=== PATIENT | male | born 1995 | race Hispanic/Latino ===

== ENCOUNTER 2017-09-04 18:44 | Emergency (ER) | payer SELFPAY ==
--- NOTE | 2017-09-04 19:15 | EDPHYS ---
Physician Documentation [facility] Name: Edward Armando Age: 21 yrs Sex: Male : 1995 Arrival Date: 09/04/2017 Time: 18:47 Bed 15 Private MD: ED Physician Jose Rafael Herrera HPI: 09/04 19:06 This 21 yrs old Male presents to ER via Ambulatory with complaints of Insect pkl Bite, Rash. 19:10 The patient was bitten on the left calf. Onset: The symptoms/episode began/occurred pkl today. Associated signs and symptoms: Pertinent positives: tenderness, itching. Historical: - Allergies: 18:50 No Known Allergies; hj - Home Meds: 18:50 None [Active]; hj - PMHx: 18:50 UTI; hj - PSHx: 18:50 None; hj - Immunization history:: Last tetanus immunization: unknown, Pneumococcal vaccine status is unknown, Flu vaccine status is unknown. - Social history:: Smoking status: unknown. ROS: 19:10 Eyes: Negative for injury, pain, redness, and discharge, ENT: Negative for injury, pkl pain, and discharge, Neck: Negative for injury, pain, and swelling, Cardiovascular: Negative for chest pain, palpitations, and edema, Respiratory: Negative for shortness of breath, cough, wheezing, and pleuritic chest pain, Abdomen/GI: Negative for abdominal pain, nausea, vomiting, diarrhea, and constipation, Back: Negative for injury and pain, : Negative for injury, bleeding, discharge, and swelling. 19:10 MS/extremity: Positive for bite, of the left calf. 19:10 Neuro: Negative for altered mental status. Exam: 19:10 Head/Face: Normocephalic, atraumatic. Eyes: Pupils equal round and reactive to light, pkl extra-ocular motions intact. Lids and lashes normal. Conjunctiva and sclera are non-icteric and not injected. Cornea within normal limits. Periorbital areas with no swelling, redness, or edema. ENT: Nares patent. No nasal discharge, no septal abnormalities noted. Tympanic membranes are normal and external auditory canals are clear. Oropharynx with no redness, swelling, or masses, exudates, or evidence of obstruction, uvula midline. Mucous membranes moist. Neck: Trachea midline, no thyromegaly or masses palpated, and no cervical lymphadenopathy. Supple, full range of motion without nuchal rigidity, or vertebral point tenderness. No Meningismus. Chest/axilla: Normal chest wall appearance and motion. Nontender with no deformity. No lesions are appreciated. Cardiovascular: Regular rate and rhythm with a normal S1 and S2. No gallops, murmurs, or rubs. Normal PMI, no JVD. No pulse deficits. Respiratory: Lungs have equal breath sounds bilaterally, clear to auscultation and percussion. No rales, rhonchi or wheezes noted. No increased work of breathing, no retractions or nasal flaring. Abdomen/GI: Soft, non-tender, with normal bowel sounds. No distension or tympany. No guarding or rebound. No evidence of tenderness throughout. Back: No spinal tenderness. No costovertebral tenderness. Full range of motion. Neuro: Awake and alert, GCS 15, oriented to person, place, time, and situation. Cranial nerves II-XII grossly intact. Motor strength 5/5 in all extremities. Sensory grossly intact. Cerebellar exam normal. Normal gait. 19:10 Musculoskeletal/extremity: Extremities: grossly normal except: noted in the left calf: bite, No definite abscess noted at this time. Vital Signs: 18:50 BP 126 / 65; Pulse 102; Resp 18; Temp 99.6(TE); Pulse Ox 97% on R/A; Weight 111.58 kg; hj Height 5 ft. 9 in. (175.26 cm); 18:50 Body Mass Index 36.33 (111.58 kg, 175.26 cm) MDM: 19:05 Patient medically screened. pkl 19:10 Data reviewed: vital signs, nurses notes. pkl Administered Medications: No medications were administered Disposition: 09/04/17 19:14 Discharged to Home. Impression: Insect bite left calf. - Condition is Stable. - Prescriptions for Keflex 500 mg Oral Capsule - take 1 capsule by ORAL route every 6 hours for 7 days; 28 capsule. - Medication Reconciliation Form, Thank You Letter, Antibiotic Education, Prescription Opioid Use form. - Follow up: Private Physician; When: 2 - 3 days; Reason: Re-evaluation by your physician. - Problem is new. - Symptoms are unchanged. Signatures: Jose Rafael Herrera MD MD pkCastillo Schaefer RN RN Ana Golden RN RN rk2 Corrections: (The following items were deleted from the chart) 19:36 19:14 09/04/2017 19:14 Discharged to Home. Impression: Insect bite left calf. Condition rk2 is Stable. Forms are Medication Reconciliation Form, Thank You Letter, Antibiotic Education, Prescription Opioid Use. Follow up: Private Physician; When: 2 - 3 days; Reason: Re-evaluation by your physician. Problem is new. Symptoms are unchanged. pkl
--- NOTE | 2017-09-04 19:15 | ER ---
Nurse's Notes [facility] Name: Edward Armando Age: 21 yrs Sex: Male : 1995 Arrival Date: 09/04/2017 Time: 18:47 Bed 15 Private MD: Diagnosis: Insect bite left calf Presentation: 09/04 18:48 Presenting complaint: Patient states: i started noticing like an insect bite on the hj back of my L leg today; it is itchy and numb around it;. Transition of care: patient was not received from another setting of care. Onset of symptoms was September 04, 2017. Initial Sepsis Screen: Does the patient meet any 2 criteria? No. Patient's initial sepsis screen is negative. Does the patient have a suspected source of infection? No. Patient's initial sepsis screen is negative. Care prior to arrival: None. 18:48 Method Of Arrival: Ambulatory 18:48 Acuity: FRIEDA 4 hj Triage Assessment: 18:50 Bite description: bite sustained to left calf by an unknown animal, animal information: vaccination(s) is not applicable. General: Appears in no apparent distress. uncomfortable, Behavior is calm, cooperative, appropriate for age. Pain: Denies pain. Historical: - Allergies: 18:50 No Known Allergies; - Home Meds: 18:50 None [Active]; - PMHx: 18:50 UTI; - PSHx: 18:50 None; hj - Immunization history:: Last tetanus immunization: unknown, Pneumococcal vaccine status is unknown, Flu vaccine status is unknown. - Social history:: Smoking status: unknown. Screenin:33 Abuse screen: Denies threats or abuse. Nutritional screening: No deficits noted. rk2 Tuberculosis screening: No symptoms or risk factors identified. Fall Risk None identified. Assessment: 18:50 Derm: Skin Skin is pink, warm \T\ dry. 19:34 General: Appears in no apparent distress. well developed, well nourished, Behavior is rk2 calm, cooperative. Neuro: Level of Consciousness is alert, obeys commands, Oriented to person, place, time, situation. Respiratory: Airway is patent Respiratory effort is even, unlabored, Respiratory pattern is regular, symmetrical. Vital Signs: 18:50 BP 126 / 65; Pulse 102; Resp 18; Temp 99.6(TE); Pulse Ox 97% on R/A; Weight 111.58 kg; hj Height 5 ft. 9 in. (175.26 cm); 18:50 Body Mass Index 36.33 (111.58 kg, 175.26 cm) ED Course: 18:47 Patient arrived in ED. as 18:49 Triage completed. hj 18:50 Arm band placed on right wrist. hj 19:05 Jose Rafael Herrera MD is Attending Physician. pkl 19:31 Ana Alfred, RN is Primary Nurse. rk2 19:33 Patient has correct armband on for positive identification. Bed in low position. Call rk2 light in reach. 19:35 No provider procedures requiring assistance completed. Patient did not have IV access rk2 during this emergency room visit. Administered Medications: No medications were administered Outcome: 19:14 Discharge ordered by . pkl 19:35 Discharged to home ambulatory. rk2 19:35 Condition: good 19:35 Discharge instructions given to patient, Prescriptions given X 1. 19:36 Patient left the ED. rk2 Signatures: Jose Rafael Herrera MD MD pkAlta Cardona Henry RN RN Ana Alfred RN RN rk2 Corrections: (The following items were deleted from the chart) 18:52 18:50 Pulse 102bpm; Resp 18bpm; Pulse Ox 97% RA; Temp 99.6F Temporal; 111.58 kg; Height hj 5 ft. 9 in.; BMI: 36.3; hj
== END 2017-09-04 19:36 | disposition home or self-care (01) ==
LOC: ER 18:44
DX: S80.862A Insect bite (nonvenomous), left lower leg, initial encounter (principal)
CPT/HCPCS: 99282

== ENCOUNTER 2017-09-05 20:34 | Emergency (ER) | payer SELFPAY ==
--- NOTE | 2017-09-05 21:22 | ER ---
Nurse's Notes [facility] Name: Edward Armando Age: 21 yrs Sex: Male : 1995 Arrival Date: 09/05/2017 Time: 20:35 Bed 12 Private MD: Diagnosis: Cutaneous abscess of left lower limb Presentation: 09/05 21:00 Presenting complaint: Patient states: left calf redness and raised abscess since ak1 yesterday. pt stated after taking a shower there was drainage. Transition of care: patient was not received from another setting of care. Onset of symptoms is unknown. Initial Sepsis Screen: Does the patient meet any 2 criteria? No. Patient's initial sepsis screen is negative. Does the patient have a suspected source of infection? No. Patient's initial sepsis screen is negative. Care prior to arrival: None. 21:00 Method Of Arrival: Ambulatory ak1 21:00 Acuity: FRIEDA 4 ak1 Triage Assessment: 21:01 Bite description: bite sustained to left leg by an unknown animal, animal information: ak1 vaccination(s) is not applicable. General: Appears in no apparent distress. Behavior is calm, cooperative. Pain: Complains of pain in left leg. EENT: No signs and/or symptoms were reported regarding the EENT system. Neuro: No deficits noted. Cardiovascular: No deficits noted. Respiratory: No deficits noted. GI: No signs and/or symptoms were reported involving the gastrointestinal system. : No signs and/or symptoms were reported regarding the genitourinary system. Derm: Abscess located on left calf is dime sized, is red. Musculoskeletal: No signs and/or symptoms reported regarding the musculoskeletal system. Historical: - Allergies: 21: No Known Allergies; ak1 - Home Meds: 21: None [Active]; ak1 - PMHx: 21: None; ak1 - PSHx: 21: None; ak1 - Immunization history:: Adult Immunizations up to date. - Social history:: Smoking status: Patient uses tobacco products, denies chronic smoking, but will smoke occasionally. Screenin:02 Abuse screen: Denies threats or abuse. Denies injuries from another. Nutritional ak1 screening: No deficits noted. Tuberculosis screening: No symptoms or risk factors identified. Fall Risk None identified. Assessment: 21:02 Derm: Skin has lesions on abscess to left calf Skin is red. ak1 21:30 Reassessment: Went to d/c pt but pt had already left without signing papers. aa1 Vital Signs: 20:59 BP 145 / 89; Pulse 82; Resp 18; Temp 98.1; Pulse Ox 96% on R/A; Weight 149.69 kg (R); ak1 Height 5 ft. 10 in. (177.80 cm) (R); Pain 10/10; 20:59 Body Mass Index 47.35 (149.69 kg, 177.80 cm) ak1 ED Course: 20:35 Patient arrived in ED. al2 20:59 Arm band placed on Patient placed in waiting room, Patient notified of wait time. ak1 21:01 Triage completed. ak1 21:02 Patient has correct armband on for positive identification. ak1 21:09 Florence Kelly [facility]C [facility] kb 21:09 Juan Jose Sullivan MD is Attending Physician. kb 21:30 No provider procedures requiring assistance completed. Patient did not have IV access aa1 during this emergency room visit. Administered Medications: No medications were administered Outcome: 21:22 Discharge ordered by MD. kb 21:30 Discharged to home ambulatory. aa1 21:30 Condition: good 21:31 Patient left the ED. aa1 Signatures: Florence Kelly FNP-C FNP-Mildred Lombardo RN RN aa1 Marisol Lares RN RN ak1 Antonieta Acosta al2
--- NOTE | 2017-09-05 21:23 | EDPHYS ---
Physician Documentation [facility] Name: Edward Armando Age: 21 yrs Sex: Male : 1995 Arrival Date: 09/05/2017 Time: 20:35 Bed 12 Private MD: ED Physician Juan Jose Sullivan HPI: 09/05 21:19 This 21 yrs old Male presents to ER via Ambulatory with complaints of Insect kb Bite, Leg Pain. 21:19 The patient presents with an abscess of the left calf. Description: draining, kb erythematous. Onset: The symptoms/episode began/occurred today. Possible cause(s): rash. Associated signs and symptoms: Pertinent positives: drainage, erythema, Pertinent negatives: foreign body sensation, fever, headache, nausea, shortness of breath, swelling, vomiting. Modifying factors: the symptoms are alleviated by nothing, the symptoms are aggravated by nothing. Severity of symptoms: At their worst the symptoms were very mild, in the emergency department the symptoms are unchanged. The patient has not experienced similar symptoms in the past. The patient has been recently seen at the [facility] Emergency Department, yesterday, for similar complaints. Pt states he was here yesterday for a rash, was given keflex. Today had a small "pimple" on the back of his leg with some redness. States it popped while he was in the shower so he came to have it looked at. Historical: - Allergies: 21:01 No Known Allergies; ak1 - Home Meds: 21:01 None [Active]; ak1 - PMHx: 21:01 None; ak1 - PSHx: 21:01 None; ak1 - Immunization history:: Adult Immunizations up to date. - Social history:: Smoking status: Patient uses tobacco products, denies chronic smoking, but will smoke occasionally. ROS: 21:15 Constitutional: Negative for fever, chills, and weight loss, Cardiovascular: Negative kb for chest pain, palpitations, and edema, Respiratory: Negative for shortness of breath, cough, wheezing, and pleuritic chest pain, Abdomen/GI: Negative for abdominal pain, nausea, vomiting, diarrhea, and constipation, Back: Negative for injury and pain, MS/Extremity: Negative for injury and deformity, Neuro: Negative for headache, weakness, numbness, tingling, and seizure. 21:15 Skin: Positive for abscess, erythema, rash, of the left calf. Exam: 21:15 Constitutional: This is a well developed, well nourished patient who is awake, alert, kb and in no acute distress. Head/Face: Normocephalic, atraumatic. Chest/axilla: Normal chest wall appearance and motion. Nontender with no deformity. No lesions are appreciated. Cardiovascular: Regular rate and rhythm with a normal S1 and S2. No gallops, murmurs, or rubs. Normal PMI, no JVD. No pulse deficits. Respiratory: Lungs have equal breath sounds bilaterally, clear to auscultation and percussion. No rales, rhonchi or wheezes noted. No increased work of breathing, no retractions or nasal flaring. Abdomen/GI: Soft, non-tender, with normal bowel sounds. No distension or tympany. No guarding or rebound. No evidence of tenderness throughout. MS/ Extremity: Pulses equal, no cyanosis. Neurovascular intact. Full, normal range of motion. Neuro: Awake and alert, GCS 15, oriented to person, place, time, and situation. Cranial nerves II-XII grossly intact. Motor strength 5/5 in all extremities. Sensory grossly intact. Cerebellar exam normal. Normal gait. 21:15 Skin: abscess, that is small, of the left calf, with drainage. Vital Signs: 20:59 BP 145 / 89; Pulse 82; Resp 18; Temp 98.1; Pulse Ox 96% on R/A; Weight 149.69 kg (R); ak1 Height 5 ft. 10 in. (177.80 cm) (R); Pain 10/10; 20:59 Body Mass Index 47.35 (149.69 kg, 177.80 cm) ak1 MDM: 21:10 Patient medically screened. kb 21:15 Data reviewed: vital signs, nurses notes. Data interpreted: Pulse oximetry: on room air kb is 96 %. Interpretation: normal. Counseling: I had a detailed discussion with the patient and/or guardian regarding: the historical points, exam findings, and any diagnostic results supporting the discharge/admit diagnosis, the need for outpatient follow up, a family practitioner, to return to the emergency department if symptoms worsen or persist or if there are any questions or concerns that arise at home. Administered Medications: No medications were administered Disposition: 09/06 00:56 Co-signature as Attending Physician, Juan Jose Sullivan MD. Chart complete. rn Disposition: 09/05/17 21:22 Discharged to Home. Impression: Cutaneous abscess of left lower limb. - Condition is Stable. - Discharge Instructions: Abscess, [id number]. - Medication Reconciliation Form, Thank You Letter, Antibiotic Education, Prescription Opioid Use form. - Follow up: Emergency Department; When: As needed; Reason: Worsening of condition. Follow up: Private Physician; When: 2 - 3 days; Reason: Recheck today's complaints, Continuance of care, Re-evaluation by your physician. - Notes: Continue previously prescribed antibiotics Signatures: Florence Kelly, ASSOCIATE ACCOUNT EXECUTIVE-C ASSOCIATE ACCOUNT EXECUTIVE-Ckb Mildred Guevara, RN RN aa1 Juan Jose Sullivan MD MD rn Marisol Lares, RN RN ak1 Corrections: (The following items were deleted from the chart) 09/05 21:31 21:22 09/05/2017 21:22 Discharged to Home. Impression: Cutaneous abscess of left lower aa1 limb. Condition is Stable. Forms are Medication Reconciliation Form, Thank You Letter, Antibiotic Education, Prescription Opioid Use. Follow up: Emergency Department; When: As needed; Reason: Worsening of condition. Follow up: Private Physician; When: 2 - 3 days; Reason: Recheck today's complaints, Continuance of care, Re-evaluation by your physician. kb
== END 2017-09-05 21:31 | disposition home or self-care (01) ==
LOC: ER 20:34
DX: L02.416 Cutaneous abscess of left lower limb (principal)
CPT/HCPCS: 99281

== ENCOUNTER 2018-06-27 16:45 | Emergency (ER) | payer SELFPAY ==
--- OUTSIDE RECORDS SUMMARY | 2018-06-27 16:48 | XMS REPORT ---
:1995 [facility] [address] [place] [address] [address] [place] [address] Care Team Providers Name Role Phone Unavailable Unavailable Unavailable Payers Payer Name Policy Type Policy Number Effective Date Expiration Date Problems This patient has no known problems. Allergies, Adverse Reactions, Alerts Allergy Allergy Status Severity Reaction(s) Onset Inactive Treating Comments Name Type Date Date Clinician No Known DA Active U 2018-01 Allergies -25 00:00:0 0 No Known DA Active U 2015-06 Allergies -21 00:00:0 0 Medications This patient has no known medications.
--- NOTE | 2018-06-27 17:46 | ER ---
Nurse's Notes [facility] Name: Edward Armando Age: 22 yrs Sex: Male : 1995 Arrival Date: 06/27/2018 Time: 16:47 Bed 26 Private MD: Diagnosis: Vomiting Presentation: 06/27 16:51 Presenting complaint: Patient states: Vomiting x1 at work today, reports because it sg happened at work they sent him to the ER for evaluation, pt states that he feels much better after vomiting and has not vomited since then, denies N/D/Fever at this time, reports that he felt warm at work before vomiting and then was a little dizzy but those symptoms are now gone, pt states he has had nasal drainage and sore throat for one day as well. Transition of care: patient was not received from another setting of care. Onset of symptoms was June 27, 2018. Risk Assessment: Do you want to hurt yourself or someone else? Patient reports no desire to harm self or others. Initial Sepsis Screen: Does the patient meet any 2 criteria? No. Patient's initial sepsis screen is negative. Does the patient have a suspected source of infection? No. Patient's initial sepsis screen is negative. Care prior to arrival: None. 16:51 Method Of Arrival: Ambulatory sg 16:51 Acuity: FRIEDA 4 sg Triage Assessment: 18:19 General: Appears in no apparent distress. comfortable, Behavior is calm, cooperative. rv 18:20 GI: Reports vomiting. rv 18:20 Pain: Denies pain. rv Historical: - Allergies: 16:50 No Known Allergies; sg - Home Meds: 16:50 None [Active]; sg - PMHx: 16:50 None; sg - PSHx: 16:50 None; sg - Immunization history:: Adult Immunizations not up to date. - Social history:: Smoking status: Patient uses tobacco products, denies chronic smoking, but will smoke occasionally. - Ebola Screening: : Patient negative for fever greater than or equal to 101.5 degrees Fahrenheit, and additional compatible Ebola Virus Disease symptoms Patient denies exposure to infectious person Patient denies travel to an Ebola-affected area in the 21 days before illness onset No symptoms or risks identified at this time. Screenin:19 Abuse screen: Denies threats or abuse. Denies injuries from another. Nutritional rv screening: No deficits noted. Tuberculosis screening: No symptoms or risk factors identified. Fall Risk None identified. Assessment: 18:19 Reassessment: agree with triage assessment. rv 18:20 GI: Abdomen is round. rv Vital Signs: 16:49 Pulse 75; Resp 18; Temp 98.6; Pulse Ox 100% ; Weight 136.08 kg (R); Pain 0/10; sg 16:51 BP 136 / 77; sg ED Course: 16:47 Patient arrived in ED. as 16:49 Arm band placed on. sg 16:53 Triage completed. sg 17:10 Claudia Shipman FNP-C is PHCP. snw 17:10 Kelechi Meza MD is Attending Physician. snw 18:19 Patient has correct armband on for positive identification. Bed in low position. Call rv light in reach. Pulse ox on. NIBP on. 18:19 No provider procedures requiring assistance completed. Patient did not have IV access rv during this emergency room visit. Administered Medications: No medications were administered Outcome: 17:45 Discharge ordered by . snw 18:20 Discharged to home ambulatory. rv 18:20 Condition: good 18:20 Discharge instructions given to patient, Instructed on discharge instructions, follow up and referral plans. Demonstrated understanding of instructions, follow-up care. 18:20 Patient left the ED. rv Signatures: Amaury Joel, RN RN Claudia Shipman FNP-C FNP-Alta Barkley Ronaldo, RN RN rv
--- NOTE | 2018-06-27 17:46 | EDPHYS ---
Physician Documentation [facility] Name: Edward Armando Age: 22 yrs Sex: Male : 1995 Arrival Date: 06/27/2018 Time: 16:47 Bed 26 Private MD: ED Physician Kelechi Meza HPI: 06/27 18:15 This 22 yrs old Male presents to ER via Ambulatory with complaints of Vomiting.snw 18:15 The patient presents to the emergency department with vomiting, X1. Onset: The snw symptoms/episode began/occurred suddenly, and improved just post vomiting. Associated signs and symptoms: The patient has no apparent associated signs or symptoms. Severity of symptoms: At their worst the symptoms were mild. It is unknown whether or not the patient has had similar symptoms in the past. It is unknown whether or not the patient has recently seen a physician. Historical: - Allergies: 16:50 No Known Allergies; sg - Home Meds: 16:50 None [Active]; sg - PMHx: 16:50 None; sg - PSHx: 16:50 None; sg - Immunization history:: Adult Immunizations not up to date. - Social history:: Smoking status: Patient uses tobacco products, denies chronic smoking, but will smoke occasionally. - Ebola Screening: : Patient negative for fever greater than or equal to 101.5 degrees Fahrenheit, and additional compatible Ebola Virus Disease symptoms Patient denies exposure to infectious person Patient denies travel to an Ebola-affected area in the 21 days before illness onset No symptoms or risks identified at this time. ROS: 18:13 Constitutional: Negative for fever, chills, and weight loss, Eyes: Negative for injury, snw pain, redness, and discharge, ENT: Negative for injury, pain, and discharge, Neck: Negative for injury, pain, and swelling, Cardiovascular: Negative for chest pain, palpitations, and edema, Respiratory: Negative for shortness of breath, cough, wheezing, and pleuritic chest pain, Back: Negative for injury and pain, : Negative for injury, bleeding, discharge, and swelling, MS/Extremity: Negative for injury and deformity, Skin: Negative for injury, rash, and discoloration, Neuro: Negative for headache, weakness, numbness, tingling, and seizure. 18:13 Abdomen/GI: Positive for vomiting, x 1 episode. Pt states he feels fine now. 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 Exam: 18:13 Constitutional: This is a well developed, well nourished patient who is awake, alert, snw and in no acute distress. Head/Face: Normocephalic, atraumatic. Eyes: Pupils equal round and reactive to light, extra-ocular motions intact. Lids and lashes normal. Conjunctiva and sclera are non-icteric and not injected. Cornea within normal limits. Periorbital areas with no swelling, redness, or edema. ENT: Nares patent. No nasal discharge, no septal abnormalities noted. Tympanic membranes are normal and external auditory canals are clear. Oropharynx with no redness, swelling, or masses, exudates, or evidence of obstruction, uvula midline. Mucous membranes moist. 18:13 Chest/axilla: Normal chest wall appearance and motion. Nontender with no deformity. No lesions are appreciated. Cardiovascular: Regular rate and rhythm with a normal S1 and S2. No gallops, murmurs, or rubs. Normal PMI, no JVD. No pulse deficits. Respiratory: Lungs have equal breath sounds bilaterally, clear to auscultation and percussion. No rales, rhonchi or wheezes noted. No increased work of breathing, no retractions or nasal flaring. Abdomen/GI: Soft, non-tender, with normal bowel sounds. No distension or tympany. No guarding or rebound. No evidence of tenderness throughout. obese Back: No spinal tenderness. No costovertebral tenderness. Full range of motion. Skin: Warm, dry with normal turgor. Normal color with no rashes, no lesions, and no evidence of cellulitis. MS/ Extremity: Pulses equal, no cyanosis. Neurovascular intact. Full, normal range of motion. Neuro: Awake and alert, GCS 15, oriented to person, place, time, and situation. Cranial nerves II-XII grossly intact. Motor strength 5/5 in all extremities. Sensory grossly intact. Cerebellar exam normal. Normal gait. 18:13 Neck: External neck: acanthosis. Vital Signs: 16:49 Pulse 75; Resp 18; Temp 98.6; Pulse Ox 100% ; Weight 136.08 kg (R); Pain 0/10; sg 16:51 BP 136 / 77; sg MDM: 17:10 Patient medically screened. snw 18:15 Data reviewed: vital signs, nurses notes. Data interpreted: Pulse oximetry: on room air snw is 100 %. Interpretation: normal. Counseling: I had a detailed discussion with the patient and/or guardian regarding: the historical points, exam findings, and any diagnostic results supporting the discharge/admit diagnosis, the presence of at least one elevated blood pressure reading (>120/80) during this emergency department visit, the need for outpatient follow up, to return to the emergency department if symptoms worsen or persist or if there are any questions or concerns that arise at home. Special discussion: Based on the patient's Hx, exam, and Dx evaluation, there is no indication for emergent surgery or inpatient Tx. It is understood by the patient/guardian that if the Sx's persist or worsen they need to return immediately for re-evaluation. Based on the history and exam findings, there is no indication for further emergent testing or inpatient evaluation. I discussed with the patient/guardian the need to see the primary care provider for further evaluation of the symptoms. Administered Medications: No medications were administered Disposition: 06/27/18 17:45 Discharged to Home. Impression: Vomiting. - Condition is Stable. - Discharge Instructions: Nausea and Vomiting, Adult, Acanthosis Nigricans. - Work release form, Medication Reconciliation Form, Thank You Letter, Antibiotic Education, Prescription Opioid Use form. - Follow up: Private Physician; When: 2 - 3 days; Reason: Recheck today's complaints, Continuance of care, Re-evaluation by your physician. Follow up: Emergency Department; When: As needed; Reason: Worsening of condition. Addendum: 06/28/2018 18:58 Co-signature as Attending Physician, Kelechi Meza MD I agree with the assessment and k dr plan of care. Signatures: Amaury Joel, RN RN Kelechi Myrick MD MD [facility] Claudia Shipman, ADULT SCHOOL TEACHER-C [employer]ULT SCHOOL TEACHER-[employer] Marito Mendoza, RN RN rv Corrections: (The following items were deleted from the chart) 06/27 18:20 17:45 06/27/2018 17:45 Discharged to Home. Impression: Vomiting. Condition is Stable. rv Forms are Medication Reconciliation Form, Thank You Letter, Antibiotic Education, Prescription Opioid Use. Follow up: Private Physician; When: 2 - 3 days; Reason: Recheck today's complaints, Continuance of care, Re-evaluation by your physician. Follow up: Emergency Department; When: As needed; Reason: Worsening of condition. paige
== END 2018-06-27 18:20 | disposition home or self-care (01) ==
LOC: ER 16:45
DX: R11.10 Vomiting, unspecified (principal); Z72.0 Tobacco use
CPT/HCPCS: 99283

== ENCOUNTER 2018-11-18 22:20 | Emergency (ER) | payer SELFPAY ==
--- OUTSIDE RECORDS SUMMARY | 2018-11-18 22:23 | XMS REPORT ---
:1995 [facility] Address [address] [place] [address] [address] [place] [address] Care Team Providers Name Role Phone Unavailable [...]
--- NOTE | 2018-11-18 23:09 | ER ---
Nurse's Notes [facility] Name: Edward Armando Age: 22 yrs Sex: Male : 1995 Arrival Date: 11/18/2018 Time: 22:26 Bed Waiting Private MD: Diagnosis: Presentation: 11/18 22:38 Presenting complaint: Patient states: poison marga to bilateral arms. no resp distress ak1 noted. Transition of care: patient was not received from another setting of care. Onset of symptoms is unknown. Risk Assessment: Do you want to hurt yourself or someone else? Patient reports no desire to harm self or others. Initial Sepsis Screen: Does the patient meet any 2 criteria? No. Patient's initial sepsis screen is negative. Does the patient have a suspected source of infection? No. Patient's initial sepsis screen is negative. Care prior to arrival: None. 22:38 Method Of Arrival: Ambulatory ak1 22:38 Acuity: FRIEDA 5 ak1 Triage Assessment: 22:40 General: Appears in no apparent distress. Behavior is calm, cooperative. Pain: Denies ak1 pain. Historical: - Allergies: 22:40 No Known Allergies; ak1 - Home Meds: 22:40 None [Active]; ak1 - PMHx: 22:40 None; ak1 - PSHx: 22:40 None; ak1 - Immunization history:: Adult Immunizations up to date. - Social history:: Smoking status: Patient uses tobacco products, denies chronic smoking, but will smoke occasionally. - Ebola Screening: : No symptoms or risks identified at this time. Screenin:40 Abuse screen: Denies threats or abuse. Denies injuries from another. Nutritional ak1 screening: No deficits noted. Tuberculosis screening: No symptoms or risk factors identified. Fall Risk None identified. Vital Signs: 22:35 BP 149 / 72; Pulse 71; Resp 16; Temp 98; Pulse Ox 98% on R/A; Weight 108.86 kg; Height ak1 5 ft. 9 in. (175.26 cm); Pain 0/10; 22:35 Body Mass Index 35.44 (108.86 kg, 175.26 cm) ak1 ED Course: 22:26 Patient arrived in ED. es 22:35 Arm band placed on Patient placed in waiting room, Patient notified of wait time. ak1 22:40 Triage completed. ak1 23:07 Patient's name was called from ER lobby. No response. Unable to locate patient. Will ak1 disposition as left without being seen by a provider. Administered Medications: No medications were administered Outcome: 23:08 Patient left the ED. ak1 Signatures: Carmen Riggins Amber, RN RN ak1
== END 2018-11-18 23:08 | disposition left against medical advice (07) ==
LOC: ER 22:20
DX: R21 Rash and other nonspecific skin eruption (principal); Z72.0 Tobacco use; Z53.21 Procedure and treatment not carried out due to patient leaving prior to being seen by health care provider
CPT/HCPCS: 99281

== ENCOUNTER 2024-07-01 07:38 | Inpatient (IN) | payer SELFPAY ==
--- OUTSIDE RECORDS SUMMARY | 2024-07-01 07:42 | XMS REPORT | Continuity of Care Document ---
Author Name Unknown Address [address] [facility] [address] [place] [address] [facility] thconnect Address [address] [facility] [place] [address] Care Team Providers Care Histopathology Technician Name Role Phone Pcp-None Primary Care Physician Unavailab DANITA Martinez Attending Clinician Unava DIANE Munoz Attending Clinician Unavailable ITZEL ODOM Attending Clinician Unavailable SPEEDY KNUTSON Attending Clinician Unavailable LISY_ Attending Clinician Unavail able Ryan Odom Attending Clinician Unavailable Physician, No Primary or Family Admitting Clinic nishi Unavailable TIFFANIE VAZQUEZ Admitting Clinician Unavailable LISY_ Admitting Clinician Unavail able Payers Payer Name Policy Type Policy Number Effective Date Expirati on Date Source Self Pay P [id number] 2022 00:00:00 Allergies, Adverse Reactions, Alerts Allergy Name Allergy Type Status Severity Reaction(s) Onset Date Inactive Date Treating Clinician Comments Source No Known Drug Allergie s DA Active U 12-03 00:00: 00 [facility] No Known Allergie s DA Active U 09-14 00:00: 00 [facility] No Known Allergie s DA Active U 09-14 00:00: 00 [facility] No Known Allergie s DA Active U 2017-04 0 00:00: 00 [facility] No Known Allergie s DA Active U 2017-04 0 00:00: 00 [facility] No Known Allergie s DA Active U 07-18 00:00: 00 [facility] Social History Social Habit Start Date Stop Date Quantity Comments Source time of call 2022-10-23 16:02:05 2022-10-23 16:02:05 10/23/2022 4:02 PM [facility] Encounters Start Date/Time End Date/Time Encounter Type Admission Type Attending Clinicians Care Facility Care Department Encounter ID Source 2022-11-14 08:23:02 Outpatient [facility] [id number] [facility] 2022-11-10 12:11:05 Outpatient [facility] [id number] [facility] 2022-10-23 16:03:03 Outpatient [facility] [id number] [facility] 2022-06-02 10:17:02 Outpatient [facility] [id number] [facility] 2021-12-26 14:11:06 Outpatient [facility] [id number] [facility] 2021-11-06 17:34:45 Outpatient [facility] [id number] [facility] 2020-12-03 20:04:00 Inpatient [facility] [id number] [facility] 2020-12-03 20:04:00 Inpatient [facility] [id number] 20 [facility] 2019-09-15 13:50:00 Inpatient [facility] [id number] [facility] 2023-04-05 16:36:00 2023-04-05 18:24:00 Emergency E DANITA HERNANDEZ [facility] [id number] [facility] 2022-10-07 10:53:00 2022-10-07 13:34:00 Emergency E DANITA HERNANDEZ [facility] [id number] [facility] 2022-09-01 02:15:00 2022-09-04 22:38:00 Inpatient E DIANE JIMENEZ [facility] MED [id number] [facility] 2021-12-26 12:12:26 2021-12-26 23:59:00 Outpatient ITZEL ODOM [facility] [id number] [facility] 2021-11-07 12:32:13 2021-11-07 23:59:00 Outpatient SPEEDY KNUTSON [facility] [id number] [facility] 2021-03-08 01:59:00 2021-03-08 01:59:00 Outpatient GONZALEZ_DO MINGO_MD_ [facility] [id number] [facility] 2021-02-08 01:40:00 2021-02-08 01:40:00 Outpatient GONZALEZ_DO MINGO_MD_ [facility] [id number] [facility] 2021-01-11 01:19:00 2021-01-11 01:19:00 Outpatient GONZALEZ_DO MINGO_MD_ [facility] [id number] [facility] 2021-01-05 04:23:00 2021-01-05 04:23:00 Outpatient GONZALEZ_DO MINGO_MD_ [facility] [id number] [facility] 2020-12-03 15:15:00 2020-12-04 00:32:00 Emergency [facility] [id number] [facility] 2020-12-03 17:04:17 2020-12-03 17:17:49 Emergency [facility] [id number] [facility] Results Test Description Test Time Test Comments Results Result Co mments Source Comprehensive Metabolic [id number] 20:30:00* Test Item Value Reference Range Interpretation Comme nts SODIUM (test code = NA) 138.0 mmol/L 136.0-145.0 N Potassium,K (test code = K) 3.9 mmol/L 3.0-5.1 N Chloride (test code = CL) 109 mmol/L 98-107 H Carbon Dioxide (test code = CO2) 21 mmol/L 20-31 N Anion Gap (test code = GAP) 8 mmol/L 5-15 N Blood Urea Nitrogen (test co de = BUN) 14 mg/dL 9-23 N Creatinine (test code = CREATT) 1.05 mg/dL 0.55-1.02 H Creatinine Clr Calc Pharmacy (test code = CRCLPHA) 149.89 mL/min Estimated GFR ( Ameri ca (test code = EGFRAA) > 60 mL/min/1.73m2 Estimated GFR (Non Afr Ameri ca (test code = EGFRNAA) > 60 mL/min/1.73m2 BUN/Creatinine Ratio (test c ode = BCRATIO) 13 ratio 10-20 N Glucose (test code = GLU) 93 mg/dL 74-106 N Osmolality,Calculated (test code = OSMOC) 286.0 Calcium (test code = CA) 10.7 mg/dL 8.3-10.6 H Bilirubin,Total (test code = BILIT) 0.5 mg/dL 0.2-1.1 N Aspartate Amino Transferase (test code = AST) 44 U/L 0-34 H Alanine Aminotransferase (te st code = ALT) 41 U/L 10-49 N Total Protein (test code = TP) 9.0 g/dL 5.7-8.2 H Albumin Level (test code = ALB) 5.4 g/dL 3.2-4.8 H Globulin (test code = GLOB) 3.6 mg/dL 2.3-3.5 H Albumin/Globulin Ratio (test code = AGRATIO) 1.5 ratio 0.8-2.0 N Alkaline Phosphatase (test c ode = ALP) 89 U/L 46-116 N Ethanol [id number] 20:30:00* Test Item Value Reference Range Interpretation Comme nts Ethanol (test code = ETOH) < 3 mg/dL THIS IS A COR RECTED REPORTEthanol previously reported as:< 3 mg/dLCORRECTED REPORT CALLED TO ON 12/03/20 AT 2355 Troponin [id number] 20:30:00* Test Item Value Reference Range Interpretation Comme nts Troponin I (test code = TROP) 6 pg/mL 0-45 N Interpretive Com ments:* The 99th percentile URL for the assay is <45 pg/ml.* A rise and fall in Troponin I with at least onevalue above the 99th percentile with clinical evidence ofmyocardial ischemia would support a diagnosis of AMI. Adelta of at least 20% is recommended to assess acutechanges in results above the 99th percentile in serialmeasurements. Drug Screen,[id number] 20:20:00* Test Item Value Reference Range Interpretation Comme nts PCP Phencyclidine Screen,Uri ne (test code = PCPU) Negative Negative Amphetamine Screen,Urine (te st code = AMPU) Negative Negative Methadone Screen,Urine (test code = METHU) Negative Negative Opiate Screen,Urine (test co de = UOPIS) Negative Negative Barbituates Screen,Urine (te st code = BARBU) Negative Negative Benzodiazepines Screen,Urine (test code = UBENZS) Negative Negative Cocaine Screen,Urine (test c ode = UCOCS) Negative Negative Cannabinoid Screen,Urine (te st code = UTHCS) Positive Negative A Propoxyphene Screen, Urine ( test code = UPROP) Negative Negative UA, Urinalysis Rflx Cult/[id number] 20:20:00* Test Item Value Reference Range Interpretation Comme nts Color,Urine (test code = UCOL) Yellow Y Clarity,Urine (test code = UCLAR) Clear Clear PH,Urine (test code = UPH.XX) 5.5 5.5-8.5 Specific [place],Urine (test code = USG) 1.025 1.005-1.030 N Blood,Urine (test code = UBLD) Moderate cells/uL Negative A Protein,Urine (test code = UPRO) 30 mg/dL Negative A Glucose,Urine (UA) (test code = UGLU) Negative mg/dL Negative Ketones,Urine (test code = UKET) 160 mg/dL Negative A Nitrate,Urine (test code = UNIT) Negative Negative Bilirubin,Urine (test code = UBIL) Small mg/dL Negative A ICTOTEST NEGA TIVE Urobilinogen,Urine (test code = UURO) 1.0 mg/dL Negative Leukocyte Esterase,Urine (test code = ULEU) Moderate cells/uL Negative A Urine [id number] 20:20:00* Test Item Value Reference Range Interpretation Comme nts RBC,Urine (test code = URBC.XX) 4-5 /HPF None Seen WBC,Urine (test code = UWBC.XX) 6-10 /HPF None Seen A Transitional Epi Cells,Urine (test code = UTREPI.XX) 0-2 /HPF None Seen A Coronavirus PCR, COVID19 [id number] 20:20:00* Test Item Value Reference Range Interpretation Comme nts Coronavirus PCR, COVID19 Rapid (test code = SARSCOV2) For use under Emergency Use Authorization (EUA) only. Coronavirus PCR, COVID19 Rapid (test code = OQGRJHI95.1) Reference Range: Negative SARS-CoV-2 PCR Result: (test code = SARS-CoV-2 PCR Result:) Negative by PCR COVID-19 Status: AsymptomaticCHLAMYDIA GC DNA BY [id number] 11:09:00* Test Item Value Reference Range Interpretation Comme nts C. TRACHOMATIS DNA BY PCR (test code = CHLAMTDNA) Negative Negative N. GONORRHOEAE DNA BY PCR (test code = NGONORDNA) Negative Negative Performed At: [address] [id number] aviva Hackett MD Ph:[phone] RAPID PLASMA [id number] 11:19:00* Test Item Value Reference Range Interpretation Comme nts RAPID PLASMA REAGIN (test co de = RPR) NONREACTIVE NONREACTIVE UA RFLX MICR CULT IF [id number] 14:48:00* Test Item Value Reference Range Interpretation Comme nts UA COLOR (test code = COLU) YELLOW YEL/STRAW UA APPEARANCE (test code = APPU) SL CLOUDY CLEAR UA GLUCOSE DIPSTICK (test co de = DGLUU) NEGATIVE NEGATIVE UA BILIRUBIN DIPSTICK (test code = BILU) NEGATIVE NEGATIVE UA KETONE DIPSTICK (test cod e = KETU) NEGATIVE NEGATIVE UA SPECIFIC GRAVITY (test co de = SGU) 1.014 1.005-1.030 N UA BLOOD DIPSTICK (test code = CHASITY) 1+ NEGATIVE A UA PH DIPSTICK (test code = MAURILIO) 7.0 5.0-7.0 N UA PROTEIN DIPSTICK (test co de = PROU) NEGATIVE NEGATIVE UA UROBILINIOGEN DIPSTICK (t est code = URO) 0.2 mg/dL 0.2-1.0 UA NITRITE DIPSTICK (test co de = DANDY) NEGATIVE NEGATIVE UA LEUKOCYTE ESTERASE DIPSTI CK (test code = LEUU) NEGATIVE NEGATIVE UA WBC (test code = WBCU) 0-3 WBC/HPF 0-3 UA RBC (test code = RBCU) 0-3 RBC/HPF 0-3 UA WBC NO REFLEX (test code = WBCUCL) 0-3 WBC/HPF 0-3 UA BACTERIA (test code = BACU) TRACE /HPF NONE SEEN UA SQUAMOUS CELLS (test code = SQU) 0-5 /HPF NONE SEEN UA MUCUS (test code = MUCU) TRACE /LPF NONE SEEN UA AMORPHOUS SEDIMENT (test code = AMORU) TRACE /HPF NONE Indication for culture: Dysuria/FrequencySpecimen Description: [facility] [address] [place] [address] Patient Name: Cailin Bess Medical Record#: [id number] Address: [address] [place] [address] City/State/Zip: [place] [address]: Ryan Odom MD Insurance: Self Pay /Age/Sex: 1995/23/M Admit/Reg Date: 12/03/[address]: Fiona Lozada NP Location: [facility]/ PCP: Pcp-Md ZEENAT Lucas Date of Service: 12/03/20 Order (s): XR chest 1V CPT Code: 71675 ReportNumber: [id number] Reason for Exam: CP AFTER HOURS SERVICE ON: 12/04/2020 3:48 AM CDT AP Portable Chest Location Code M12 HISTORY: CP FINDINGS: There are no infiltrates. There are no pleural effusions. There is no pneumothorax. Cardiac silhouette and mediastinum appear within normal limits. IMPRESSION: No active pulmonary findings. Electronically signed by: Mike Shoemaker MD 12/04/2020 3:48 AM CDT Dictated By: Mike Shoemaker MD 12/04/20327 Signed By: Mike Shoemaker MD 12/04/20327 TD/TT: 12/04/20327 Tech: GPS02 cc: [id number]; PCPNO* Fiona Lozada NP; Pcp-None,Md EPPERSON Notes Date/Time Note Provider Source 2019-09-15 14:20:00 [facility] ([facility]) EMERGENCY PROVIDER REPORT REPORT#:[id number] REPORT STATUS: Signed DATE:09/15/19 TIME: 142 PATIENT: CAILIN BESS UNIT #: [id number] ROOM/BED: AGE: 23 SEX: M PCP PHYS: No Primary or Family Physician SERVICE AUTHOR: Gisell Ram * ALL edits or amendments must be made on the electronic/computer document * HPI- Male General Confirmed Patient Yes Initial Greet Date/Time 09/15/19 1350 Presentation Chief Complaint Dysuria, Penile lesion Hx Obtained From Patient Onset Occurred Today Free Text HPI Notes Free Text HPI Notes 21-year-old male with no significant past medical history presents to ED with painful penile lesion today with dysuria. Patient reports unprotected intercourse 2 days ago. He denies urethral discharge or trouble retracting foreskin. He denies previous STD.. No testicular pain or Risk- Male Risk Stratification Torsion Risk factors reviewed Review of Systems ROS Statements All systems rev neg except as marked. Focused Review of Systems Constitutional Denies: Chills, Fever. Male Reports: Dysuria, Penile lesion. Denies: Penile discharge. Past Medical History - Adult Stated Complaint PAINFUL URINATION Allergies Coded Allergies: No Known Allergies (09/15/19) Pt reports no significant: Past medical history, Past surgical history, Family history, Social history Alcohol Use Denies EtOH use Drug Use Marijuana (last use was 1 mth ago) Other Social History Employed, Local resident Occupation chemical plant Physical Exam Vital Signs Vital Signs First Documented: Result Date Time Pulse Ox 98 09/14 1429 B/P 124/76 09/14 1429 B/P Mean 92 09/14 1429 O2 Delivery Room air 09/14 1429 Temp 36.9 09/14 1429 Pulse 76 09/14 1429 Resp 16 09/14 1429 Last Documented: Result Date Time Pulse Ox 98 09/14 1429 B/P 124/76 09/14 1429 B/P Mean 92 09/14 1429 O2 Delivery Room air 09/149 Temp 36.9 09/14 1429 Pulse 76 09/14 1429 Resp 16 09/14 1429 Review of Vital Signs Reviewed Focused PE General/Const General/Const Awake, Alert, No acute distress Skin Skin Color NL, No rash Genitourinary General uncircumcised male. No trouble retracting and replacing foreskin. No urethral discharge. Isolated white, painful chancre at urethral meatus. No scrotal swelling, erythema, or TTP. No epidydmal TTP. Strong cremasteric Bilaterally Interpretation Diagnostics Lab Results Interpretation Results Laboratory Tests: 09/15 1423 Urines Urine Color (YEL/STRAW) YELLOW Urine Appearance (CLEAR) SL CLOUDY Urine pH (5.0 - 7.0) 7.0 Ur Specific [place] (1.005 - 1.030) 1.014 Urine Protein (NEGATIVE) NEGATIVE Urine Glucose (UA) (NEGATIVE) NEGATIVE Urine Ketones (NEGATIVE) NEGATIVE Urine Blood (NEGATIVE) 1+ H Urine Nitrite (NEGATIVE) NEGATIVE Urine Bilirubin (NEGATIVE) NEGATIVE Urine Urobilinogen (0.2 - 1.0 mg/dL) 0.2 Ur Leukocyte Esterase (NEGATIVE) NEGATIVE Urine RBC (0 - 3 RBC/HPF) 0-3 Urine WBC (0 - 3 WBC/HPF) 0-3 Ur Squamous Epith Cells (NONE SEEN /HPF) 0-5 Amorphous Sediment (NONE /HPF) TRACE Urine Bacteria (NONE SEEN /HPF) TRACE Urine Mucus (NONE SEEN /LPF) TRACE Lab Statement Laboratory studies reviewed and considered in the medical decision-making. Re-Evaluation MDM Re-Evaluation/Progress Re-Evaluation/Progress Text/Dict Note Spoke with patient regarding STDs. [place] pending. Likely herpetic chancre secondary to pain. Will DC home with acyclovir Time of Re-Eval 1521 Re-Eval Status Unchanged ED Course Medication(s) Ordered Medication(s) Ordered: Anti-Infective Agents Sig/Omar Start time Last Medication Dose Route Stop Time Status Admin Azithromycin 1,000 MG X1ED STA 09/14 1419 DC 09/14 PO 09/14 1420 1434 Ceftriaxone Sodium 250 MG X1ED STA 09/14 1419 DC 09/14 IM 09/14 1420 1434 Cardiovascular Drugs Sig/Omar Start time Last Medication Dose Route Stop Time Status Admin Lidocaine HCl 2.1 ML X1ED STA 09/14 1419 DC 09/14 IM 09/14 1420 1434 Patient Discharge Departure Vital Signs/Condition Vital Signs First Documented: Result Date Time Pulse Ox 98 09/14 1429 B/P 124/76 09/14 1429 B/P Mean 92 09/14 1429 O2 Delivery Room air 09/14 1429 Temp 36.9 / 1429 Pulse 76 05/ 1429 Resp 16 09/14 1429 Last Documented: Result Date Time Pulse Ox 98 09/14 1429 B/P 124/76 09/14 1429 B/P Mean 92 09/14 1429 O2 Delivery Room air 09/14 1429 Temp 36.9 /18 1429 Pulse 76 09/14 1429 Resp 16 09/14 1429 All vital signs available at the time of this entry have been reviewed. Clinical Impression Clinical Impression Primary Impression: Herpes genitalis in men Disposition Decision Discharge )( Discharged to Home Yes )( Time 1522 )( Date 09/15/19 Discharge/Care Plan Counseled Regarding Diagnosis, Lab results, Need for follow-up, When to return to ED Prescriptions acylcovir Prescriptions Reviewed Risks, Benefits, Alternative treatment Referrals No Primary or Family Physician (PCP/Family) at 1714 RPT #:[id number] END OF REPORT [facility] 2019-09-15 14:20:00 [facility] ([facility]) EMERGENCY PROVIDER REPORT REPORT#:[id number] REPORT STATUS: Signed DATE:09/15/19 TIME: 1419 PATIENT: CIALIN BESS UNIT #: [id number] ROOM/BED: AGE: 23 SEX: M PCP PHYS: No Primary or Family Physician SERVICE AUTHOR: Gisell Ram * ALL edits or amendments must be made on the electronic/computer document * Gisell Ram 09/15/19 1420: HPI- Male General Confirmed Patient Yes Presentation Chief Complaint Dysuria, Penile lesion Hx Obtained From Patient Onset Occurred Today Free Text HPI Notes Free Text HPI Notes 21-year-old male with no significant past medical history presents to ED with painful penile lesion today with dysuria. Patient reports unprotected intercourse 2 days ago. He denies urethral discharge or trouble retracting foreskin. He denies previous STD.. No testicular pain or Risk- Male Risk Stratification Torsion Risk factors reviewed Review of Systems ROS Statements All systems rev neg except as marked. Focused Review of Systems Constitutional Denies: Chills, Fever. Male Reports: Dysuria, Penile lesion. Denies: Penile discharge. 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 No trouble retracting and replacing foreskin. No urethral discharge. Isolated white, painful chancre at urethral meatus. No scrotal swelling, erythema, or TTP. No epidydmal TTP. Strong cremasteric Bilaterally Interpretation Diagnostics Lab Results Interpretation Results Laboratory Tests: 09/14 142 Urines Urine Color (YEL/STRAW) YELLOW Urine Appearance (CLEAR) SL CLOUDY Urine pH (5.0 - 7.0) 7.0 Ur Specific [place] (1.005 - 1.030) 1.014 Urine Protein (NEGATIVE) NEGATIVE Urine Glucose (UA) (NEGATIVE) NEGATIVE Urine Ketones (NEGATIVE) NEGATIVE Urine Blood (NEGATIVE) 1+ H Urine Nitrite (NEGATIVE) NEGATIVE Urine Bilirubin (NEGATIVE) NEGATIVE Urine Urobilinogen (0.2 - 1.0 mg/dL) 0.2 Ur Leukocyte Esterase (NEGATIVE) NEGATIVE Urine RBC (0 - 3 RBC/HPF) 0-3 Urine WBC (0 - 3 WBC/HPF) 0-3 Ur Squamous Epith Cells (NONE SEEN /HPF) 0-5 Amorphous Sediment (NONE /HPF) TRACE Urine Bacteria (NONE SEEN /HPF) TRACE Urine Mucus (NONE SEEN /LPF) TRACE Lab Statement Laboratory studies reviewed and considered in the medical decision-making. Re-Evaluation MDM Re-Evaluation/Progress Re-Evaluation/Progress Text/Dict Note Spoke with patient regarding STDs. [place] pending. Likely herpetic chancre secondary to pain. Will DC home with acyclovir Time of Re-Eval 1521 Re-Eval Status Unchanged ED Course Medication(s) Ordered Medication(s) Ordered: Anti-Infective Agents Sig/Omar Start time Last Medication Dose Route Stop Time Status Admin Azithromycin 1,000 MG X1ED STA 09/14 1419 DC 05/18 PO 09/14 1420 1434 Ceftriaxone Sodium 250 MG X1ED STA 09/14 1419 DC 05/18 IM 09/14 1420 1434 Cardiovascular Drugs Sig/Omar Start time Last Medication Dose Route Stop Time Status Admin Lidocaine HCl 2.1 ML X1ED STA 09/14 1419 DC 05/18 IM 09/14 1420 1434 Patient Discharge Departure Vital Signs/Condition Vital Signs First Documented: Result Date Time Pulse Ox 98 09/14 1429 B/P 124/76 09/14 1429 B/P Mean 92 09/14 1429 O2 Delivery Room air 09/14 1429 Temp 36.9 05/18 1429 Pulse 76 09/14 1429 Resp 16 09/14 1429 Last Documented: Result Date Time Pulse Ox 98 05/ 1429 B/P 124/76 18 1429 B/P Mean 92 09/14 1429 O2 Delivery Room air 09/14 1429 Temp 36.9 05/18 1429 Pulse 76 05 1429 Resp 16 09/14 1429 All vital signs available at the time of this entry have been reviewed. Clinical Impression Clinical Impression Primary Impression: Herpes genitalis in men Disposition Decision Discharge )( Discharged to Home Yes )( Time 1522 )( Date 09/15/19 Discharge/Care Plan Counseled Regarding Diagnosis, Lab results, Need for follow-up, When to return to ED Prescriptions acylcovir Prescriptions Reviewed Risks, Benefits, Alternative treatment Referrals No Primary or Family Physician (PCP/Family) Anthony Swanson 09/15/19 2213: HPI- Male General Initial Greet Date/Time 09/15/19 1350 Patient Discharge Departure Supervising Physician Note MidLv Saw Pt Alone I have reviewed the PA/RELIABILITY ENGINEER's note and plan of care. I was available for consultation as needed at all times during the patient's visit in the emergency department. I agree with the clinical impression, plan and disposition. at 1714 at 2213 [facility] #:[id number] END OF REPORT [facility]
[2024-07-01 09:20] LABS: Absolute Eosinophils 0.1 K/uL (0-0.5); Absolute Lymphocytes (CBC) 2.1 K/uL (0.7-4.9); Absolute Monocytes 0.5 K/uL (0.1-1.3); Absolute Neutrophil 5.8 K/uL (1.8-8.0); Basophils % 0.5 % (0-1.3); Eosinophils % 1.3 % (0-4.4); Hematocrit 45.4 % (39.6-49.0); Hemoglobin 15.1 g/dL (13.6-17.9); Lymphocytes % 24.9 % (15.3-44.8); MCH 27.7 pg (27.0-35.0); MCHC 33.2 g/dL (32.0-36.0); MCV 83.2 fL (80-100); MPV 8.7 fL (7.6-11.3); Monocytes % 6.3 % (3.3-12.3); Nucleated Red Blood Cells % 0.1 % (0-0); Platelets 254 thou/uL (152-406); RBC Red Blood Cell Count 5.45 M/uL (4.33-5.43); Red Cell Distribution Width 13.9 % (12.1-15.2)
[2024-07-01 09:34] LABS: Albumin 3.5 g/dL (3.4-5.0); Albumin/Globulin Ratio 0.7 (1.1-1.8); Anion Gap 6.8 mEq/L (5.0-15.0); Bilirubin Total 0.4 mg/dL (0.2-1.0); Globulin 4.7 g/dL (2.3-3.5); Potassium 3.8 mEq/L (3.5-5.1); Protein, Total 8.2 g/dL (6.4-8.2)
--- NOTE | 2024-07-01 09:46 | RAD REPORT ---
EXAMINATION: CT ABDOMEN AND PELVIS WITH CONTRAST CLINICAL INDICATION: ABD PAIN TECHNIQUE: CT abdomen and pelvis was performed, after the administration of IV contrast, [facility]. Axial, sagittal and coronal reconstructions were obtained. One or more of the following dose reduction techniques were used: Automated exposure control, adjustment of the mA and k V according to patient size, and iterative reconstruction. Unless otherwise specified, incidental findings do not require dedicated imaging follow-up. COMPARISON: No prior exam. FINDINGS: LOWER CHEST: The visualized lung bases are clear. LIVER: Mild fatty liver is present. No focal lesion or biliary dilatation is seen. Grossly unremark able gallbladder. SPLEEN: Normal size. No focal lesion. PANCREAS: No mass, ductal dilation, or hal-pancreatic fluid. ADRENALS: Normal; no mass. KIDNEYS: Normal size and contour. No hydronephrosis. GASTROINTESTINAL TRACT: There is an abnormal thickening and surrounding inflammation of the sigmoid c olon seen in the anterior pelvis. Several diverticula stem in this region. The findings likely indicate acute diverticulitis. There is evidence of a 3 cm peridiverticular abscess which abuts and t hickens the superior margin of the urinary bladder in this region. APPENDIX: Appendix not visualized, but no inflammatory changes in region of appendix. LYMPH NODES: No lymphadenopathy. MUSCULOSKELETAL: No acute or suspicious osseous abnormality. ADDITIONAL FINDINGS: None. IMPRESSION: The findings are most in keeping with moderately severe acute sigmoid diverticulitis. Follow-up colon oscopy would be useful after appropriate therapy. Peridiverticular abscess is present abutting the urinary bladder dome. At the moment there is no evidence of a fistula to the urinary bladder lumen ho wever patient would likely be at risk for such a fistula forming.
--- NOTE | 2024-07-01 10:08 | EDPHYS ---
Physician Documentation [facility] Name: Edward Armando Age: 28 yrs Sex: Male : 1995 Arrival Date: 07/01/2024 Time: 07:38 Bed 5 Private MD: ED Physician Rickie Barrera HPI: 07/01 09:28 This 28 yrs old Male presents to ER via Ambulatory with complaints of ms3 Abdominal Pain. 09:28 28-year-old male with no past medical history presents to the emergency department for ms3 lower abdominal pain that has been ongoing for 2 weeks. Patient endorses dysuria. He denies penile discharge, urgency, fevers, flank pain. Patient rates his pain a 02/06.. Historical: - Allergies: 08:19 No Known Allergies; ss - Home Meds: 08:19 None [Active]; ss - PMHx: 08:19 None; ss - PSHx: 08:19 None; ss - Immunization history:: Client reports having NOT received the Covid vaccine. - Infectious Disease History:: Denies. - Social history:: Smoking status: Patient reports the use of cigarette tobacco products, cigars, Reported history of juuling and/or vaping. ROS: 09:28 Constitutional: Negative for fever, and chills. Cardiovascular: Negative for chest ms3 pain, and palpitations. Respiratory: Negative for shortness of breath, cough, wheezing, and pleuritic chest pain, MS/Extremity: Negative for injury and deformity, Skin: Negative for injury, rash, and discoloration, 09:28 Abdomen/GI: Positive for abdominal pain, Exam: 09:28 Constitutional: This is a well developed, well nourished patient who is awake, alert, ms3 and in no acute distress. Cardiovascular: Regular rate and rhythm with a normal S1 and S2. No gallops, murmurs, or rubs. Normal PMI, no JVD. No pulse deficits. Respiratory: Lungs have equal breath sounds bilaterally, clear to auscultation and percussion. No rales, rhonchi or wheezes noted. No increased work of breathing, no retractions or nasal flaring. 09:28 Skin: Warm, dry with normal turgor. Normal color with no rashes, no lesions, and no evidence of cellulitis. MS/ Extremity: Pulses equal, no cyanosis. Neurovascular intact. Full, normal range of motion. 09:28 Abdomen/GI: Inspection: abdomen appears normal, Bowel sounds: normal, Palpation: moderate abdominal tenderness, in the right upper quadrant and right lower quadrant, Vital Signs: 08:17 Pulse 76; Resp 16; Pulse Ox 99% ; Weight 136.08 kg; Height 5 ft. 11 in. ; Pain 9/10; ss 08:20 BP 130 / 80; Temp 97.6(O); ss 09:12 BP 120 / 73; Resp 14; Pulse Ox 98% on R/A; rs6 10:03 BP 109 / 53; Pulse 68; Pulse Ox 97% on R/A; rs6 08:17 Body Mass Index 41.84 (136.08 kg, 180.34 cm) ss 08:17 Pain Scale: Adult ss MDM: 08:13 Medical Screening Exam initiated ms3 09:28 Differential diagnosis: appendicitis, bowel obstruction, cholecystitis, Cholelithiasis, ms3 diverticulitis, gastritis, non-specific abd pain. 10:46 Data reviewed: vital signs, nurses notes, lab test result(s), radiologic studies, and ms3 as a result, I will admit patient. Consideration of Admission/Observation Patient was admitted/placed on observation. Management of patient was discussed with the following: Hospitalist: Dr Tran. Air Moving Technician: Dr Vargas- If unable to be drained IV Abx and hospitalist admission. He will consult. Radiologist- Dr Wills- Abscess not amendable to drainage. I considered the following discharge prescriptions or medication management in the emergency department Medications were administered in the Emergency Department. See MAR. Counseling: I had a detailed discussion with the patient and/or guardian regarding the historical points, exam findings, and any diagnostic results supporting the discharge/admit diagnosis, lab results, radiology results, the need for further work-up and treatment in the hospital. ED course: Discussed necessity of admission with patient and he agrees with plan. All questions answered.. 07/01 08:12 Order name: CBC with Diff; Complete Time: 09:28 ms3 07/01 08:12 Order name: CMP; Complete Time: 09:54 ms3 07/01 08:12 Order name: Lipase; Complete Time: :54 ms3 07/01 08:12 Order name: Urinalysis w/ reflexes; Complete Time: 10:46 ms3 07/01 11:38 Order name: Basic Metabolic Panel EDMS 07/01 11:38 Order name: Basic Metabolic Panel EDMS 07/01 11:38 Order name: Basic Metabolic Panel EDMS 07/01 11:38 Order name: Basic Metabolic Panel EDMS 07/01 11:38 Order name: Basic Metabolic Panel EDMS 07/01 11:38 Order name: Basic Metabolic Panel EDMS 07/01 11:38 Order name: CBC with Automated Diff EDMS 07/01 11:38 Order name: CBC with Automated Diff EDMS 07/01 11:38 Order name: CBC with Automated Diff EDMS 07/01 11:38 Order name: CBC with Automated Diff EDMS 07/01 11:38 Order name: CBC with Automated Diff EDMS / 11:38 Order name: CBC with Automated Diff EDMS / 08:12 Order name: CT Abd/Pelvis - IV Contrast Only; Complete Time: 09:54 ms3 07/01 08:12 Order name: IV Saline Lock; Complete Time: 09:13 ms3 07/01 08:12 Order name: Labs collected and sent; Complete Time: 09:13 ms3 Administered Medications: 11:00 Drug: Piperacillin-Tazobactam IVPB 3.375 grams IVPB once over 60 mins; (mix in NS 100 bp mL) Route: IVPB; Infused Over: 60 mins; Site: right antecubital; 18:19 Follow up: IV Status: Completed infusion bp Disposition Summary: 07/01/24 10:07 Hospitalization Ordered Notes: Hospitalization Status: Inpatient Admission ms3 Provider: Keith Tran ms3 Condition: Stable ms3 Problem: new ms3 Symptoms: are unchanged ms3 Bed/Room Type: Standard ms3 Location: Telemetry/MedSurg (Inpatient)(07/01/24 20:49) Room Assignment: [facility](07/01/24 20:49) Diagnosis - Sigmoid Diverticulitis without perforation with abscess ms3 - Lower abdominal pain, unspecified ms3 Forms: - Medication Reconciliation Form ms3 - SBAR form ms3 - Leadership Thank You Letter ms3 Signatures: Dispatcher [employer] Tamar Samaniego RN RN ss Idalia Moore RN RN Prudencio Sher RN RN bp BarreraRickie velazquez DO DO ms3 Jolynn Montanez bc6 Corrections: (The following items were deleted from the chart) 13: 10:07 Telemetry/MedSurg (Inpatient) ms3 bc6 13:07 10:07 ms3 bc6 20:49 13:07 [facility] ER HOLD bc6 cg : 13:07 ERHOLD- 6 cg
--- NOTE | 2024-07-01 10:08 | ER ---
Nurse's Notes [facility] Name: Edward Armando Age: 28 yrs Sex: Male : 1995 Arrival Date: 07/01/2024 Time: 07:38 Bed 5 Private MD: Diagnosis: Sigmoid Diverticulitis without perforation with abscess;Lower abdominal pain, unspecified Presentation: 07/01 08:17 Chief complaint: Patient states: L lower abd pain that began 1 week ago. Pt reports ss this has happened in the past and they told him it had something to do with his intestines and to follow up, but was never able to. Coronavirus screen: Client denies travel out of the [place] in the last 14 days. Ebola Screen: Patient denies exposure to infectious person. Patient denies travel to an Ebola-affected area in the 21 days before illness onset. Initial Sepsis Screen: Does the patient meet any 2 criteria? No. Patient's initial sepsis screen is negative. Does the patient have a suspected source of infection? No. Patient's initial sepsis screen is negative. Risk Assessment: Do you want to hurt yourself or someone else? Patient reports no desire to harm self or others. Onset of symptoms is unknown. 08:17 Method Of Arrival: Ambulatory ss 08:17 Acuity: FRIEDA 3 ss Triage Assessment: 08:30 General: Appears in no apparent distress. uncomfortable, Behavior is calm, cooperative, bp appropriate for age. Pain: Complains of pain in right lower quadrant and right upper quadrant. EENT: No deficits noted. Neuro: No deficits noted. Cardiovascular: No deficits noted. Respiratory: No deficits noted. GI: Reports lower abdominal pain. : No signs and/or symptoms were reported regarding the genitourinary system. Derm: No deficits noted. Musculoskeletal: No deficits noted. Historical: - Allergies: 08:19 No Known Allergies; ss - Home Meds: 08:19 None [Active]; ss - PMHx: 08:19 None; ss - PSHx: 08:19 None; ss - Immunization history:: Client reports having NOT received the Covid vaccine. - Infectious Disease History:: Denies. - Social history:: Smoking status: Patient reports the use of cigarette tobacco products, cigars, Reported history of juuling and/or vaping. Screenin:30 [facility] ED Fall Risk Assessment (Adult) History of falling in the last 3 months, bp including since admission No falls in past 3 months (0 pts) Confusion or Disorientation No (0 pts) Intoxicated or Sedated No (0 pts) Impaired Gait No (0 pts) Mobility Assist Device Used No (0 pt) Altered Elimination No (0 pt) Score/Fall Risk Level 0 - 2 = Low Risk Oriented to surroundings. Abuse screen: Denies threats or abuse. Denies injuries from another. Nutritional screening: No deficits noted. Tuberculosis screening: No symptoms or risk factors identified. Assessment: 08:30 General: Appears in no apparent distress. uncomfortable, Behavior is cooperative, bp appropriate for age, anxious. Pain: Complains of pain in right lower quadrant and right upper quadrant. Neuro: No deficits noted. Cardiovascular: No deficits noted. Respiratory: No deficits noted. GI: Bowel sounds present X 4 quads. Abd is soft X 4 quads. : No signs and/or symptoms were reported regarding the genitourinary system. EENT: No deficits noted. Derm: No deficits noted. Musculoskeletal: No deficits noted. Vital Signs: 08:17 Pulse 76; Resp 16; Pulse Ox 99% ; Weight 136.08 kg; Height 5 ft. 11 in. ; Pain 9/10; ss 08:20 BP 130 / 80; Temp 97.6(O); ss 09:12 BP 120 / 73; Resp 14; Pulse Ox 98% on R/A; rs6 10:03 BP 109 / 53; Pulse 68; Pulse Ox 97% on R/A; rs6 08:17 Body Mass Index 41.84 (136.08 kg, 180.34 cm) ss 08:17 Pain Scale: Adult ss ED Course: 07:42 Patient arrived in ED. cj3 07:48 Rickie Barrera DO is Attending Physician. ms3 08:19 Triage completed. ss 08:19 Arm band placed on right wrist. ss 08:30 Patient has correct armband on for positive identification. bp 09:01 Prudencio Fontenot, RN is Primary Nurse. bp 09:12 Inserted saline lock: 18 gauge in right forearm, using aseptic technique. Blood rs6 collected. Flushed with 10 mL NS. 09:24 CT Abd/Pelvis - IV Contrast Only In Process Unspecified. EDMS 10:01 Keith Tran PA is Hospitalizing Provider. ms3 18:20 No provider procedures requiring assistance completed. Patient admitted, IV remains in bp place. 21:10 Provided Education on: admission. dd2 Administered Medications: 11:00 Drug: Piperacillin-Tazobactam IVPB 3.375 grams IVPB once over 60 mins; (mix in NS 100 bp mL) Route: IVPB; Infused Over: 60 mins; Site: right antecubital; 18:19 Follow up: IV Status: Completed infusion bp Medication: 08:30 VIS not applicable for this client. bp Outcome: 10:07 Decision to Hospitalize by Provider. ms3 11:00 Admitted to ER Hold. Please see [facility] for further documentation. bp 11:00 Condition: stable 11:00 Instructed on the need for admit, 22:27 Patient left the ED. jb4 Signatures: Dispatcher [employer] EDMS Tamar Del Rio, RN RN Dirk Stewart RN RN jb4 Prudencio Fontenot RN RN bp Rickie Barrera DO DO ms3 CHRIS MYLES RN RN dd2 Rocky Watkins rs6 Nohelia Horta 3
[2024-07-01 10:39] LABS: Urine Bilirubin NEGATIVE (Negative); Urine Blood Negative (Negative); Urine Clarity Clear (Clear); Urine Color Light-Yellow (Yellow); Urine Glucose NEGATIVE (Negative); Urine Ketones NEGATIVE (Negative); Urine Microscopic Reflex YN NO UMIC; Urine Nitrite NEGATIVE (Negative); Urine Protein NEGATIVE (Negative); Urine Urobilinogen Normal (Normal)
[2024-07-01 10:42] LABS: Specific Gravity > 1.030 (1.005-1.030)
[2024-07-01] MEDS: PIPER TAZO 3.375 GM in NA CHLORIDE 0.9% 100 ML IV SCH (11:00)
[2024-07-01] MEDS ORDERED: PIPERACIL/TAZO 3.375 GM VIAL IV ONE ×2 (11:12→19:51)
[2024-07-01] MEDS ORDERED: NA CHLORIDE 0.9% 100 ML ONE ×2 (11:12→19:50)
[2024-07-01] MEDS ORDERED: ACETAMINOPHEN 500 MG TAB PO PRN (11:31)
--- NOTE | 2024-07-01 11:46 | P.HP ---
Certification for Inpatient Patient admitted to: Inpatient With expected LOS: >2 Midnights Patient will require the following post-hospital care: None Practitioner: I am a practitioner with admitting privileges, knowledge of patient current condition, hospital course, and medical plan of care. Services: Services provided to patient in accordance with Admission requirements found in Title 42 Section 412.3 of the Code of Federal Regulations Patient History Date of Service: 07/01/24 Reason for admission: Diverticulitis History of Present Illness: 28-year-old patient presents with lower abdominal pain for the last 2 weeks, constant, sometimes pain is on the left side and sometimes on right side but its all over the lower abdomen, constant pain, severe in intensity, activity makes it worse so he presented to the emergency room, he was found to have diverticulitis with abscess, surgery was consulted and we were asked admit him. He is complaining of mild headache but is not bad, complaining of nausea but no vomiting. He is complaining of some cough in the last week or so but that is getting better. He has alternating issues with constipation and diarrhea for the last 2 weeks. He lost some weight in the last 2 months but he gained some of the weight back. Chronic issues with the knee pains, he takes medical marijuana for this. No blackouts. No double vision or blurry vision. No chest pain or shortness of breath. No blood in the urine or stool. No fever. No lower extremity edema. Review of systems: All other 10 point review of systems are negative other than as mentioned above. Allergies and medications: Reviewed, as per [facility] EMR. Past medical history: h/o diverticulitis, morbid obesity with a BMI of 41. Past surgical history: None Social history: No drugs than medical marijuana. Positive for smoking cigarettes and alcohol. Family history: Dad had history of HI and CVA. Physical examination: Vital signs: Reviewed, as per EMR. General appearance: Alert and comfortable HEENT: Extraocular movements intact, oral mucosa moist. CVS: Normal S1-S2 Lungs: Clear to auscultation bilaterally Abdomen: Soft, bowel sounds present, mild tenderness all over the lower abdomen. Extremities: No lower extremity edema GRINDER TENDER: Moves all 4 extremities, no obvious focal deficits Musculoskeletal: No obvious joint swelling or tenderness Allergies No Known Allergies Allergy (Unverified 08/15/16 18:21) - Past Medical/Surgical History Diabetic: No Review of Systems Gastrointestinal: Abdominal Pain Physical Examination - Studies Laboratory Data (last 24 hrs) 07/01/24 07/01/24 09:05 09:05 WBC 8.60 Hgb 15.1 Hct 45.4 Plt Count 254 Sodium 138 Potassium 3.8 BUN 9 Creatinine 0.78 Glucose 95 Total Bilirubin 0.4 AST 14 L ALT 25 Alkaline Phosphatase 66 Lipase 31 Assessment and Plan - Plan Assessment and plan: 1. Diverticulitis with abscess: Keep n.p.o., start IV antibiotics, surgery team was consulted. If he gets clinically better, plan to discharge home in the next couple of days, he will need outpatient colonoscopy. 2. Morbid obesity with BMI of 41: Follow-up with PCP, consider weight loss. 3. Fatty liver: Probably related to obesity, consider weight loss, follow-up with PCP. DVT prophylaxis: Lovenox CODE STATUS: Full code I Discussed all the above mentioned plan with the patient, he understands and agrees with the plan. He will be admitted the hospital as inpatient as he requires more than 2 midnights of hospitalization. - Advance Directives Does patient have a Living Will: No Does patient have a Durable POA for Healthcare: No - Code Status/Comfort Care Code Status Assessed: Yes Code Status: Full Code
[2024-07-01] MEDS: NA CHLORIDE 0.9% 1,000 ML IV SCH (12:00)
[2024-07-01 17:40] VITALS: BMI 41.8
--- NOTE | 2024-07-01 18:35 | CON ---
Date of Consultation: 07/01/2024 Reason For Consultation: Abdominal pain. History Of Present Illness: The patient is a 28-year-old gentleman who comes in with lower abdominal pain for the last 2 weeks, associated with pain in the lower abdomen, mostly on the left side and hussein prapubic region. The patient also has alternating diarrhea and constipation. He denies any blood pe r rectum. He has never had a colonoscopy. The patient did have an episode of diverticulitis a coupl e of years ago which was managed conservatively with antibiotics. The patient was advised at that ti de to get a colonoscopy. He has not had a chance to get one yet. The patient denies any sore throat , runny nose, cough, headaches, or dizziness. No chest pain. No fever or chills. Does have occasio nal nausea but no vomiting. Review of Systems: Otherwise unremarkable. The patient does not have any dysuria, hematuria, or pneumaturia. Past Medical History: Morbid obesity and history of diverticulitis. Past Surgical History: Negative. Allergies: NO ALLERGIES. Social History: The patient does smoke and drink alcohol. The patient was counseled on the avoidanc e of tobacco products as well as limiting the amount of alcohol use. He uses medical marijuana. Family History: Significant for MO and stroke. Physical Examination: Vital Signs: Stable. He is afebrile. General: He is awake, alert, oriented x3. Head and Neck: Cranial nerves 2-12 are grossly within normal limits. No neck masses. No JVD. Thro at clear. Neck supple. Chest: Clear. Heart: S1, S2. Abdomen: Soft, nondistended. Positive bowel sounds. Positive left lower quadrant and mild suprapub ic tenderness. No rebound, rigidity, or guarding. Extremities: Adequately perfused, nontender. Neuro: Nonfocal. Diagnostic Data: White count 8.6. There is no left shift. Electrolytes are essentially within norm al limits. CT of the abdomen and pelvis reviewed. Shows severe acute sigmoid diverticulitis with a 3 cm hal diverticular abscess which abuts and thickens the superior margin of the urinary bladder. There is no evidence of fistula at this time. Assessment: A 28-year-old gentleman with acute sigmoid diverticulitis with abscess. Recommendations: The patient will need IV antibiotics for at least a couple of days and then it can be switched over to oral antibiotics for a couple of weeks following which the patient needs an outpa tient colonoscopy in 4-6 weeks and given the complexity of the diverticulitis, the patient would bene fit from a segmental resection of the involved colon after the colonoscopy is done. Plan of care dis cussed in detail with the patient. /MODL Voice ID: [id number] Report ID: [id number]
[2024-07-01] MEDS ORDERED: FLU (Fluarix Triv) TS24-25(6MOS UP)/PF 45 MCG/0.5 ML Syringe IM ONE (18:45)
[2024-07-01] MEDS ORDERED: ONDANSETRON 4 MG/2 ML VIAL ONE (19:49)
[2024-07-01] MEDS ORDERED: MORPHINE 4 MG/ML SYR ONE (19:49)
[2024-07-01] MEDS: MORPHINE 4 MG/ML SYR IV PRN (20:03)
[2024-07-01] MEDS: ONDANSETRON 4 MG/2 ML VIAL IV PRN (20:04)
[2024-07-01 22:48] VITALS: O2SAT 97
[2024-07-02 05:40] LABS: Absolute Eosinophils 0.2 K/uL (0-0.5); Absolute Lymphocytes (CBC) 2.2 K/uL (0.7-4.9); Absolute Monocytes 0.5 K/uL (0.1-1.3); Absolute Neutrophil 5.7 K/uL (1.8-8.0); Basophils % 0.3 % (0-1.3); Eosinophils % 2.6 % (0-4.4); Hematocrit 43.7 % (39.6-49.0); Hemoglobin 14.4 g/dL (13.6-17.9); Lymphocytes % 25.4 % (15.3-44.8); MCH 27.5 pg (27.0-35.0); MCHC 32.9 g/dL (32.0-36.0); MCV 83.7 fL (80-100); MPV 8.3 fL (7.6-11.3); Monocytes % 5.5 % (3.3-12.3); Neutrophils % 66.2 % (41.7-73.7); Nucleated Red Blood Cells % 0.2 % (0-0); Platelets 231 thou/uL (152-406); RBC Red Blood Cell Count 5.22 M/uL (4.33-5.43); Red Cell Distribution Width 13.6 % (12.1-15.2)
[2024-07-02 05:51] LABS: Anion Gap 7.6 mEq/L (5.0-15.0); Potassium 3.6 mEq/L (3.5-5.1)
[2024-07-02] MEDS: ENOXAPARIN 40 MG/0.4 ML SQ SCH (09:00)
--- NOTE | 2024-07-02 12:15 | PN ---
Date of Progress Note: 07/02/2024 Subjective: The patient is awake, alert. Pain is better. He had 1 episode of right lower quadrant pain earlier, but it has resolved now. Objective: Vital Signs: Stable. He is afebrile. Abdomen: Soft, nondistended, nontender. Positive bowel sounds. Laboratory Data: His white count is 8.6. Assessment: Acute sigmoid diverticulitis with abscess. Recommendations: Continue IV antibiotics. We will start clear liquids today. Hopefully discharge i n 24 hours if tolerated and he remains clinically stable. The patient was advised again the importan ce of getting a colonoscopy in 4-6 weeks with the GI doctor following which patient will need a color ectal surgeon evaluation for segmental colon resection. /MODL Voice ID: [id number] Report ID: [id number]
--- NOTE | 2024-07-02 17:38 | P.PN ---
Subjective Date of Service: 07/02/24 Chief Complaint: Diverticulitis Admitted with abdominal pain, had noted diverticulitis, pain controlled with as needed analgesia plan to advance diet per surgery <MihirgaviCasandra - Last Filed: 07/02/24 17:41> Date of Service: 07/02/24 <Mike Valencia - Last Filed: 07/03/24 08:00> Review of Systems 10-point ROS is otherwise unremarkable <Casandra Ho - Last Filed: 07/02/24 17:41> Physical Examination - Vital Signs Temperature: 97.8 F Blood Pressure: 123/58 Pulse: 58 Respirations: 20 Pulse Ox (%): 97 - Physical Exam General: Alert, In no apparent distress, Oriented x3 HEENT: Atraumatic, Normocephalic Neck: Supple, 2+ carotid pulse no bruit, JVD not distended Respiratory: Clear to auscultation bilaterally, Normal air movement Cardiovascular: Normal pulses, Regular rate/rhythm, Normal S1 S2 Gastrointestinal: Normal bowel sounds, Other (Right lower quadrant, left lower quadrant tenderness) Musculoskeletal: No swelling, No contractures Integumentary: No breakdown, No significant lesion Neurological: Normal speech, Normal strength at 5/5 x4 extr, Normal tone <GeorgiaKrishnay - Last Filed: 07/02/24 17:41> Assessment And Plan - Plan Assessment and Plan - Plan Assessment and plan: 1. Diverticulitis with abscess: start IV antibiotics, surgery team was consulted. he will need outpatient colonoscopy. Advance diet per surgery recommendation 2. Morbid obesity with BMI of 41: Follow-up with PCP, consider weight loss. 3. Fatty liver: Probably related to obesity, consider weight loss, follow-up with PCP. DVT prophylaxis: Lovenox CODE STATUS: Full code Discharge Plan: Home - Code Status/Comfort Care Code Status: Full Code Critical Care: No Time Spent Managing PTS Care (In Minutes): 35 <Casandra Ho - Last Filed: 07/02/24 17:41> Date of Service: 07/02/24 Patient was seen and examined. Events of the last 24 hours have been noted. Spoke with with SYLVESTER regarding patient's clinical picture after evaluating and examining the patient independently. I performed a substantial part of the MDM during this patient's care today. I personally made or approved the documented management plan and acknowledge its risk of complications. I agree with the findings and documentation provided in the SYLVESTER's notes. <Mike Valencia - Last Filed: 07/03/24 08:00>
[2024-07-03 05:20] LABS: Absolute Eosinophils 0.2 K/uL (0-0.5); Absolute Lymphocytes (CBC) 2.2 K/uL (0.7-4.9); Absolute Monocytes 0.5 K/uL (0.1-1.3); Absolute Neutrophil 5.2 K/uL (1.8-8.0); Basophils % 0.4 % (0-1.3); Eosinophils % 2.9 % (0-4.4); Hemoglobin 14.1 g/dL (13.6-17.9); Lymphocytes % 27.2 % (15.3-44.8); MCHC 32.1 g/dL (32.0-36.0); MCV 83.9 fL (80-100); MPV 8.4 fL (7.6-11.3); Monocytes % 5.9 % (3.3-12.3); Neutrophils % 63.6 % (41.7-73.7); Nucleated Red Blood Cells % 0.1 % (0-0); Platelets 251 thou/uL (152-406); RBC Red Blood Cell Count 5.25 M/uL (4.33-5.43); Red Cell Distribution Width 13.3 % (12.1-15.2)
[2024-07-03 05:23] LABS: Anion Gap 7.8 mEq/L (5.0-15.0); Potassium 3.8 mEq/L (3.5-5.1)
--- NOTE | 2024-07-03 07:59 | P.PN ---
Date of Service: 07/03/24 Subjective Patient is doing well with no new complaints Physical Examination - Vital Signs reviewed - Physical Exam General: Alert, In no apparent distress, Oriented x3 Respiratory: Clear to auscultation bilaterally, Normal air movement Cardiovascular: Normal pulses, Regular rate/rhythm, Normal S1 S2 Gastrointestinal: Normal bowel sounds, Other (Right lower quadrant, left lower quadrant tenderness) Musculoskeletal: No swelling, No contractures Neurological: No focal deficits Assessment and Plan - Assessment/Plan Assessment/Plan: 1. Diverticulitis with abscess: start IV antibiotics, surgery team was consulted. Pt will need outpatient colonoscopy. Advance diet per surgery recommendation 2. Morbid obesity with BMI of 41: Follow-up with PCP, consider weight loss; GLP-1 agonist. 3. Fatty liver: Probably related to obesity, consider weight loss, follow-up with PCP. DVT prophylaxis: Lovenox CODE STATUS: Full code Discharge Plan: Home - Code Status/Comfort Care Code Status: Full Code Critical Care: No Time Spent Managing PTS Care (In Minutes): 35
--- NOTE | 2024-07-03 11:37 | PN ---
Date of Progress Note: 07/03/2024 Subjective: The patient is awake, alert. No complaint. Objective: Vital Signs: Stable, afebrile. Abdomen: Soft, nondistended, nontender. Positive bowel sounds. Laboratory Data: White count is normal. Assessment: Acute sigmoid diverticulitis with peridiverticular abscess. Recommendations: The patient is cleared for discharge on oral antibiotics for 2 weeks. Follow up [facility] for outpatient colonoscopy. We will go ahead and get a dietary consultation prior to discharge for dietary modification that will require low-fiber initially and then high-fiber diet. /MODL Voice ID: [id number] Report ID: [id number]
[2024-07-03 13:52] VITALS: BP 141/63; TEMP 97.9
== END 2024-07-03 15:47 | disposition home or self-care (01) | DRG 392 ==
LOC: ER 07:38 → ERHOLD 11:31 → 2ND 21:30
PROVIDERS: ADMIT Hospitalist; ATTEND Hospitalist
DX: K57.20 Diverticulitis of large intestine with perforation and abscess without bleeding (principal); Z68.41 Body mass index [BMI] 40.0-44.9, adult; E66.01 Morbid (severe) obesity due to excess calories; K76.0 Fatty (change of) liver, not elsewhere classified
CPT/HCPCS: 36415; 74177; 80048; 80053; 81003; 83690; 85025; 96365; 96366; 99285; J1650; J2405; J2543; J7030; Q9967